=== PATIENT | male | born 1965 | race Caucasian/White ===

== ENCOUNTER 2018-09-12 00:36 | Inpatient (IN) | payer BC ==
[~2018-09-12] VITALS: Ht 193 cm; Wt 121.6 kg
[2018-09-12 00:43] VITALS: Ht 193 cm; Wt 121.6 kg
--- NOTE | 2018-09-12 01:05 | NUR ---
PT BIB SELF FOR C/O ABDOMINAL PAIN THAT BEGAN AFTER HE HAD [employer] FOR DINNER. PT DENIES ANY N/V/D. PT STS THAT HE IS HAVING GENERALIZED ABDONMINAL PAIN THAT IS RADIATING TO HIS LOWER BACK. PT DENIES ANY PAIN UPON URINATION AND STS THAT HE IS GETTING " HOT AND COLD". PT IS A/O X4. PT RESPS ARE E/U. PT IS ABLE TO AMBULATE WITH STEADY GAIT. NO ACD NOTED
--- NOTE | 2018-09-12 01:22 | NUR ---
DR HENRIQUEZ AT BEDSIDE FOR MSE
--- NOTE | 2018-09-12 02:28 | NUR ---
PT MEDICATED PER EMAR ORDERS. LAB IS IN ROOM FOR BLOOD DRAW
[2018-09-12 02:42] LABS: BASOPHIL % 0.7 % (0-2); PLATELET COUNT 284 x10^3mcL (130-400)
[2018-09-12 02:48] LABS: CALCIUM 9.7 mg/dL (8.5-10.1); CARBON DIOXIDE 26.7 mmol/L (21-32); CHLORIDE SERUM 103 mmol/L (98-107); CREATININE SERUM 1.2 mg/dL (0.7-1.3); GFR1 > 60 mL/min; GLUCOSE SERUM 189 mg/dL (74-106); POTASSIUM SERUM 4.5 mmol/L (3.5-5.1); SODIUM SERUM 142 mmol/L (136-145)
[2018-09-12 02:52] LABS: ALKALINE PHOSPHATASE 80 U/L (46-116); ALT/SGPT 85 U/L (16-63); AST/SGOT 53 U/L (15-37); BILIRUBIN TOTAL 0.79 mg/dL (0.20-1.00); LIPASE 121 IU/L (73-393)
--- NOTE | 2018-09-12 03:43 | NUR ---
PORTABLE ULTRASOUND AT BEDSIDE
--- NOTE | 2018-09-12 05:02 | NUR ---
DR HENRIQUEZ AT BEDSIDE TO DISCUSS PLAN OF CARE
[2018-09-12] MEDS ORDERED: LEVOTHYROXIN0.025 M2 (05:45)
--- NOTE | 2018-09-12 06:11 | NUR ---
GAVE PT REPORT TO YAAKOV OBRIEN WHO WILL ASSUME PRIMARY CARE OF PT ONCE TAKEN UP TO MED SURG FLOOR
[2018-09-12 06:34] LABS: microscopic required? NO
[2018-09-12 06:46] LABS: CHOLESTEROL/HDL RATIO 4.1; MAGNESIUM 2.1 mg/dL (1.8-2.4); PHOSPHOROUS 3.1 mg/dL (2.5-4.9)
[2018-09-12 06:54] LABS: AMPHETAMINE QUAL UR NONE DETECTED (See below)
--- NOTE | 2018-09-12 06:55 | NUR ---
PT WHEELED UPSTAIRS TO MED SURG FLOOR BY CHELO SEXTON. NO INCIDENCE NOTED
[2018-09-12 06:59] LABS: FREE T4 0.97 ng/dL (0.76-1.46); FREE THYROXINE INDEX 2.4 ug/dL (1.4-4.5); T4(THYROXINE) 6.6 ug/dL (4.7-13.3)
--- NOTE | 2018-09-12 07:05 | NUR ---
RECEIVED PT FROM NIGHT NURSE. PT IS LAYING DOWN IN BED WITH HOB UP. PT LOOKS TO BE IN NO ACUTE DISTRESS AT THIS TIME AND DENIES ANY PAIN. TELE MONITOR PRESENT. IV SITE PATENT WITH NO SIGNS OF ERYTHEMA OR SWELLING WITH IV FLUIDS INFUSING. BED IN LOWEST POSITION, CALL LIGHT WITHIN REACH. WILL CONTINUE TO MONITOR.
--- NOTE | 2018-09-12 07:24 | NUR ---
RECEIVED REPORT FROM MICAH KAUR. PT ALERT AND ORIENTED X4. PUPILS REACTIVE TO LIGHT. PT IS BREATHING E/U ON RA. LUNG SOUNDS CLEAR TO BILATERAL UPPER LOBES, DIMINSHED TO BILATERAL LOWER LOBES. S1 S2 HEART SOUNDS AUSCULTATED. PULSES MODERATE X4. SKIN IS WARM AND PINK. CAP REFILL <3 SECONDS X4. PERIPHERAL IV TO L AC PATENT, DRESSING CDI. SALINE LOCKED. ABD IS SOFT AND DISTENDED WITH HYPOACTIVE BOWEL SOUNDS, C/O PAIN TO RUQ. PT NPO AT THIS TIME. PT VOIDS FREELY. SKIN INTACT. AMBULATES WITHOUT ASSIST. ALL CARE ENDORSED TO AM NURSE.
[2018-09-12 07:36] LABS: T3 TOTAL 0.72 ng/mL
[2018-09-12 07:52] LABS: UA SPECIFIC GRAVITY 1.015 (1.005-1.035); urine erythrocyte NEGATIVE (NEGATIVE)
[2018-09-12 08:23] VITALS: BP 132/76
--- NOTE | 2018-09-12 09:35 | NUR ---
OR TAKING PATIENT DOWN FOR SURGERY. PT IS H/L. CONSENT SIGNED AND IN THE CHART. CHECKLIST COMPLETED.
[2018-09-12 13:00] VITALS: BP 151/74
--- NOTE | 2018-09-12 13:00 | NUR ---
PT RETURNED FROM SURGERY. PT IS LAYING DOWN IN BED WITH HOB UP. PT IS DROWSY BUT EASILY AROUSABLE. PT LOOKS TO BE IN NO ACUTE DISTRESS AT THIS TIME. PT IS COMPLAINING OF 3/10 PAIN TO THE ABD THAT PT STATES FEELS SORE AND IS REQUESTING PAIN MEDICATION. VITAL SIGNS ARE BP: 151/74 , MAP: 95, O2 96% ON 2L NC, HR: 63, RR: 14. BED IN LOWEST POSITIONM, CALL LIGHT WITHIN REACH. IV FLUIDS INFUSING TO IV THAT IS PATENT WITH NO SIGNS OF ERYTHEMA OR SWELLING. RON DRAIN PRESENT TO RLQ DRAINING SEROSANGENOUS FLUID. BANDAID TO UPPER MEDIAL ABD, LOWER MEDIAL ABD AND RLQ. KENDELL AND SUTURES IN PLACE. DRESSING CDI. WILL CONTINUE TO MONITOR.
--- NOTE | 2018-09-12 13:31 | NUR ---
FAMILY MEMBERS AT BEDSIDE. FAMILY MEMBER STATES PT USES CPAP AT HOME. DR. URRUTIA NOTIFIED.
[2018-09-12 14:20] VITALS: BP 159/83
--- NOTE | 2018-09-12 14:45 | NUR ---
PT IS MORE AWAKE AT THIS TIME. PT STATES THE WANT TO WALK AROUND IN A FEW HOURS. PT LOOKS TO BE IN NO ACUTE DISTRESS AND STATES THE PAIN IS TOLERABLE AT THIS TIME. IV SITE PATENT WITH NO SIGNS OF ERYTHEMA OR SWELLING WITH IV FLUIDS INFUSING. PROVIDED PT WITH AN INCENTIVE SPIROMETER AND EXPLAINED ITS USE. PT DEMONSTRATED UNDERSTANDING OF THE INCENTIVE SPIROMETER. BED IN LOWEST POSITION, CALL LIGHT WITHIN REACH. WILL CONTINUE TO MONITOR.
--- NOTE | 2018-09-12 16:20 | NUR ---
PT STATED THAT HE WALKED AROUND THE FLOOR AND IS NOW EXPERIENCING 8/10 ABD PAIN IN THE UPPER ABDOMINAL AREA. PT BLOOD PRESSURE IS 167/80. WILL NOTIFY DR. URRUTIA
[2018-09-12 16:28] VITALS: BP 167/80
[2018-09-12 18:15] VITALS: BP 140/71
--- NOTE | 2018-09-12 18:58 | NUR ---
PT IS LAYING DOWN IN BED WITH HOB UP. PT LOOKS TO BE IN NO ACUTE DISTRESS AT THIS TIME. RESPIRATIONS EVEN AND UNLABORED ON ROOM AIR SATTING AT 97%. IV SITE PATENT WITH NO SIGNS OF ERYTHEMA OR SWELLING WITH IV FLUIDS INFUSING. BED IN LOWEST POSITION, CALL LIGHT WITHIN REACH. WILL ENDORSE TO ONCOMING SHIFT. RON DRAIN EMPTIED 80 ML OF SANGENOUS FLUID.
--- NOTE | 2018-09-12 19:10 | NUR ---
CARE ASSUMED FROM OUTGOING RN. PT RESTING COMFORTABLY IN BED. NO ACUTE DISTRESS NOTED. EVEN AND UNLABORED RESPIRATION ON RA. C/O ABD DISCOMFORT S/P LAP RICKIE. AMBULATED AROUND THE HALLS. HAS NOT PASSED GAS YET. IS AT BEDSIDE. IV PATENT AND INTACT RUNNING FLUIDS PER EMAR. RON DRAIN RLQ PATENT AND INTACT DRAINING SANGUINEOUS OUTPUT. BED IN LOWEST POSITION. SIDE RAILS UPX2. CALL LIGHT WITHIN REACH. WILL CONTINUE TO MONITOR.
[2018-09-12 19:35] VITALS: BP 134/71
--- NOTE | 2018-09-13 00:34 | NUR ---
PT RESTING COMFORTABLY IN BED. NO ACUTE DISTRESS NOTED. EVEN AND UNLABORED RESPIRATIONS ON RA. IV PATENT AND INTACT RUNNING FLUIDS PER EMAR. PT ABLE TO HAVE A BOWEL MOVEMENT. C/O SOME DISCOMFORT TO LAP SITES, STATES NO PAIN MEDICATION NEEDED AT THIS TIME. BED IN LOWEST POSITION. SIDE RAILS UP X2. CALL LIGHT WITHIN REACH. WILL CONTINUE TO MONITOR.
[2018-09-13 05:00] VITALS: BP 124/71
--- NOTE | 2018-09-13 06:19 | NUR ---
PT SLEPT COMFORTABLY IN INTERVALS THROUGHOUT THE NIGHT. AMBULATED AROUND THE HALLS. ABLE TO PASS GAS AND HAVE A BOWEL MOVEMENT. GAS PAIN RELIEVED. C/O ABD SORENESS, BUT TOLERABLE WITHOUT PAIN MEDICATION. TOLERATING DIET, ADVANCED TO REGULAR FOR BREAKFAST. IV PATENT AND INTACT RUNNING FLUIDS PER EMAR. ALL NEEDS TENDED TO AND MET. ALL SCHEDULED MEDICATIONS GIVEN. BED IN LOWEST POSITION. SIDE RAILS UPX2. CALL LIGHT WITHIN REACH. WILL ENDORSE TO ONCOMING SHIFT.
--- NOTE | 2018-09-13 07:05 | NUR ---
RECIEVED PT FROM NIGHT NURSE. PT IS LAYING DOWN IN BED WITH HOB UP. RESPIRATIONS EVEN AND UNLABORED ON ROOM AIR. PT LOOKS TO BE IN NO ACUTE DISTRESS AT THIS TIME AND DENIES ANY PAIN. IV SITE PATENT WITH NO SIGNS OF ERYTHEMA OR SWELLING WITH IV FLUIDS INFUSING. TELE MONITOR PRESENT. BED IN LOWEST POSITION, CALL LIGHT WITHIN REACH. SITTER AT BEDSIDE. WILL CONTINUE TO MONITOR.
--- NOTE | 2018-09-13 07:08 | NUR ---
RECIEVED PT FROM NIGHT NURSE. PT IS LAYING DOWN IN BED WITH HOB UP AND EYES CLOSED RESTING. PT LOOKS TO BE IN NO ACUTE DISTRESS AT THIS TIME. RESPIRATIONS EVEN AND UNLABORED ON ROOM AIR. IV SITE PATENT WITH NO SIGNS OF ERYTHEMA OR SWELLING WITH IV FLUIDS INFUSING. DRESSING TO ABD IS CDI, RON DRAIN DRAINING SEROSANGENOUS DRAINAGE. BED IN LOWEST POSITION, CALL LIGHT WITHIN REACH. WILL CONTINUE TO MONITOR.
[2018-09-13 07:13] LABS: BASOPHIL % 0.2 % (0-2); PLATELET COUNT 208 x10^3mcL (130-400)
[2018-09-13 07:41] LABS: CALCIUM 8.2 mg/dL (8.5-10.1); CARBON DIOXIDE 25.7 mmol/L (21-32); CHLORIDE SERUM 106 mmol/L (98-107); CREATININE SERUM 0.9 mg/dL (0.7-1.3); GFR1 > 60 mL/min; GLUCOSE SERUM 95 mg/dL (74-106); POTASSIUM SERUM 3.8 mmol/L (3.5-5.1); SODIUM SERUM 141 mmol/L (136-145)
[2018-09-13 08:19] LABS: ALKALINE PHOSPHATASE 80 U/L (46-116); ALT/SGPT 347 U/L (16-63); AST/SGOT 240 U/L (15-37); BILIRUBIN DIRECT 1.06 mg/dL (0.0-0.2); BILIRUBIN TOTAL 2.1 mg/dL (0.20-1.00); TOTAL PROTEIN, SERUM 6.3 g/dL (6.4-8.2)
[2018-09-13 08:20] LABS: ALBUMIN 3.1 g/dL (3.4-5.0)
[2018-09-13 10:03] VITALS: BP 136/67
--- NOTE | 2018-09-13 13:30 | NUR ---
PT STATED THAT AFTER EATING LUNCH, HE FELT DIAPHORETIC AND "FELT WEIRD." PT DENIED ANY SEVERE PAIN OR NAUSEA/ VOMITING. PT LOOKS TO BE IN NO ACUTE DISTRESS AT THIS TIME AND STATES THAT HE FEELS BETTER NOW. WILL NOTIFY DR AND WILL CONTINUE TO MONITOR.
--- NOTE | 2018-09-13 15:16 | NUR ---
PT COMPLAINING OF FEELING DIAPHORETIC AND IS COMPLAINING OF 4/10 ABD PAIN. PT ORAL TEMP 98.2, BLOOD SUGAR 112. PT SKIN IS WARM, PINK AND DRY. PT LOOKS TO BE IN NO ACUTE DISTRESS. FAMILY MEMBERS AT BEDSIDE. WILL MEDICATE ACCORDING TO EMAR.
--- NOTE | 2018-09-13 16:38 | NUR ---
PT AMBULATING IN HALLWAY. PT LOOKS TO BE IN NO ACUTE DISTRESS. WILL CONTINUE TO MONITOR.
--- NOTE | 2018-09-13 18:23 | NUR ---
PT IS LAYING DOWN IN BED WITH HOB UP. RESPIRATIONS EVEN AND UNLABORED ON ROOM AIR. PT LOOKS TO BE IN NO ACUTE DISTRESS AT THIS TIME AND DENIES ANY PAIN. IV SITE PATENT WITH NO SIGNS OF ERYTHEMA OR SWELLING WITH IV FLUIDS INFUSING. BANDAIDS TO ABD ARE CDI. BED IN LOWEST POSITION, CALL LIGHT WITHIN REACH. FAMILY MEMBERS AT BEDSIDE. WILL ENDORSE TO ONCOMING SHIFT.
--- NOTE | 2018-09-13 19:10 | NUR ---
CARE ASSUMED FROM OUTGOING RN. PT AMBULATING THE HALLWAYS WITHOUT ANY ACUTE DISTRESS. NO SOB NOTED. AMBULATING WITH STEADY GAIT. NO C/O PAIN AT THIS TIME. IV PATENT AND INTACT RUNNING FLUIDS PER EMAR. WILL CONTINUE TO MONITOR.
[2018-09-13 20:49] VITALS: BP 146/78
--- NOTE | 2018-09-13 21:00 | NUR ---
Pt REFUSED CPAP AT THIS TIME. KNOWS TO CALL RESP IF HE DECIDES TO USE IT. WILL MONITOR.
--- NOTE | 2018-09-14 01:24 | NUR ---
PT SLEEPING COMFORTABLY IN BED. NO ACUTE DISTRESS NOTED. EVEN AND UNLABORED RESPIRATIONS ON RA. IV PATENT AND INTACT RUNNING FLUIDS PER EMAR. BED IN LOWEST POSITION. SIDE RAILS UPX2. CALL LIGHT WITHIN REACH. WILL CONTINUE TO MONITOR.
[2018-09-14 04:15] VITALS: BP 144/72
[2018-09-14 04:18] VITALS: BP 144/72
--- NOTE | 2018-09-14 06:12 | NUR ---
PT SLEPT COMFORTABLY IN INTERVALS THROUGHOUT THE SHIFT. NO ACUTE CHANGES NOTED. EVEN AND UNLABORED RESPIRATIONS ON RA. IV PATENT AND INTACT RUNNING FLUIDS PER EMAR. ALL NEEDS TENDED TO AND MET. ALL SCHEDULED MEDICATIONS GIVEN. LAP SITES DRESSING CDI. RON DRAIN PATENT WITH 65ML OF SEROSANGUINEOUS OUTPUT. BED IN LOWEST POSITION. SIDE RAILS UP X2. CALL LIGHT WITHIN REACH. WILL ENDORSE TO ONCOMING SHIFT.
--- NOTE | 2018-09-14 07:27 | NUR ---
ASSUMED CARE OF PATIENT. PATIENT SLEEPING BUT EASILY AROUSABLE. IV ON LAC PATENT AND INFUSING D51/2 NS AT 80ML/HR. NO APPARENT DISTRESS OR DISCOMFORT NOTED. WILL CONTINUE TO MONITOR.
[2018-09-14 07:50] LABS: ALKALINE PHOSPHATASE 70 U/L (46-116); ALT/SGPT 250 U/L (16-63); AST/SGOT 71 U/L (15-37); BILIRUBIN DIRECT 0.29 mg/dL (0.0-0.2); BILIRUBIN TOTAL 1.1 mg/dL (0.20-1.00); CALCIUM 8.5 mg/dL (8.5-10.1); CARBON DIOXIDE 26.5 mmol/L (21-32); CHLORIDE SERUM 106 mmol/L (98-107); GFR1 > 60 mL/min; GLUCOSE SERUM 98 mg/dL (74-106); POTASSIUM SERUM 3.7 mmol/L (3.5-5.1); SODIUM SERUM 141 mmol/L (136-145); TOTAL PROTEIN, SERUM 6.4 g/dL (6.4-8.2)
[2018-09-14 07:51] LABS: ALBUMIN 3.1 g/dL (3.4-5.0)
[2018-09-14 09:07] VITALS: BP 151/61
--- NOTE | 2018-09-14 10:06 | NUR ---
30 ML SEROSANGUINOUS FLUID REMOVED FROM RON DRAIN.
--- NOTE | 2018-09-14 10:32 | NUR ---
RON DRAIN REMOVED PER ORDERS. NO DRAINAGE NOTED FROM INCISION SITE. BANDAGE PLACED OVER.
[2018-09-14 10:47] LABS: BASOPHIL % 0.4 % (0-2); PLATELET COUNT 197 x10^3mcL (130-400)
[2018-09-14 10:56] LABS: RED CELL DISTRIBUTION WIDTH 14.6 % (11.5-14.5)
--- NOTE | 2018-09-14 12:32 | NUR ---
WOUND PICTURES TAKEN AND PLACED IN CHART.
[2018-09-14 12:43] VITALS: BP 151/61
--- NOTE | 2018-09-14 12:57 | NUR ---
DISCHARGE PAPERWORK AND EDUCATION PROVIDED. IV REMOVED WITH CATHTER INTACT. AWAITING FAMILY FOR RIDE.
--- NOTE | 2018-09-14 12:58 | NUR ---
[facility] FOLLOW UP APPOINTMENT DOCUMENTED IN DISCHARGE PAPERWORK.
--- NOTE | 2018-09-14 13:32 | NUR ---
PATIENT DISCHARGED OFF UNIT BY WHEELCHAIR AND FAMILY AT SIDE. NO COMPLAINTS OF PAIN OR DISCOMFORT. NO APPARENT DISTRESS NOTED. ALL BELONGINGS WITH PATIENT. ID BAND REMOVED.
== END 2018-09-14 14:05 | disposition home or self-care (01) | DRG 418 ==
LOC: ED 00:36 → MU 05:10
PROVIDERS: Emergency Medicine; Surgery; ADMIT General Practice
PROC: 3E1M38Z Irrigation of Peritoneal Cavity using Irrigating Substance, Percutaneous Approach (ICD-10-PCS; 2018-09-12)
PROC: 0FT44ZZ Resection of Gallbladder, Percutaneous Endoscopic Approach (ICD-10-PCS; principal; 2018-09-12 11:30)
DX: K80.70 Calculus of gallbladder and bile duct without cholecystitis without obstruction (principal); C85.90 Non-Hodgkin lymphoma, unspecified, unspecified site; R74.0 Nonspecific elevation of levels of transaminase and lactic acid dehydrogenase [LDH]; E03.9 Hypothyroidism, unspecified; Z79.899 Other long term (current) drug therapy
CPT/HCPCS: 82962; 83880; 84439; G0378; J0330; J0500; J0690; J1170; J1885; J2175; J2250; J2270; J2405; J2704; J3010; J3490; J7030; J7120; Q0092; Q0162